=== PATIENT | male | born 1965 | race Caucasian/White ===

== ENCOUNTER 2021-04-01 10:23 | Day surgery (SDC) | payer OTHER, SELFPAY ==
--- NOTE | 2021-04-01 | PATH_ITS ---
[facility] Accession Number: [id number] . 01 Material submitted: . PART A: stomach - ANTRUM PART B: stomach - GASTRIC POLYP PART C: esophagus - MID ESOPHAGUS . 02 Diagnosis: A. Stomach, Antrum, Biopsy: Antral and body-type mucosa with mild chronic gastritis and focal active inflammation. No evidence of Helicobacter on H/E stain. Negative for intestinal metaplasia. Negative for dysplasia and malignancy. . B. Stomach, Polyp, Biopsy: Fundic gland polyp. No evidence of Helicobacter organisms on H/E stain. Negative for intestinal metaplasia. Negative for dysplasia and malignancy. . C. Mid Esophagus, Biopsy: Squamous epithelium with no diagnostic abnormality. Intraepithelial eosinophils are not increased. Negative for dysplasia and malignancy. [facility] 04/03/2021 1341 Local . 02 Comment: A. An immunohistochemical stain will be performed to evaluate for Helicobacter organisms, and the results will be reported as an addendum. . 02 Electronically signed: . Veronique Caldwell MD, Pathologist NPI- [id number] . 01 Gross description: . Part A: ANTRUM: Received in formalin is 1 fragment(s) of lay[place], soft tissue measuring 0.5 x 0.2 x 0.2 cm submitted entirely in 1 cassette(s) Part B: GASTRIC POLYP: Received in formalin are 2 fragment(s) of lay[place], soft tissue measuring 0.2 x 0.2 x 0.2 cm to 0.2 x 0.2 x 0.2 cm submitted entirely in 1 cassette(s) Part C: MID ESOPHAGUS: Received in formalin are 3 fragment(s) of lay[place], soft tissue measuring 0.3 x 0.2 x 0.2 cm to 0.2 x 0.2 x 0.1 cm submitted entirely in 1 cassette(s) /RICARDO 04/02/2021 0426 Local . 02 Pathologist provided ICD-10: R10.13 . 02 CPT . 642574, 704839, 848006, [id number] Performed at: 01 [facility] [address] [id number] MD Xiang Robles MD Phone: [phone] Performed at: 02 [place] [id number] [place] [id number] MD Veronique Caldwell MD Phone: [phone]
[2021-04-01 11:22] LABS: COVID19 -Nasal RAPID Negative (Negative)
[2021-04-01] MEDS: LACTATED RINGERS 1,000 ML 84 ML IV (12:19)
[2021-04-01 12:20] VITALS: BP 134/90; PULSE 45; RESP 16; TEMP 36.4; O2SAT 98; BMI 25.0
--- NOTE | 2021-04-01 13:13 | PM.HP.1 ---
History of Present Illness History of Present Illness Date Patient Seen: 04/01/21 Time Patient Seen: 13:14 Chief complaint: [facility] [place] Narrative: I reviewed Dr Reagan's note. No changes. Sporadic regurgitation. He additionally notes that ove the last 5-10 yrs he's had an intermittent fleeting left sided chest pain. Patient History Medical History (Updated 04/01/21 @ 13:16 by Pedro Parikh MD) Anxiety Deviated nasal septum Erectile dysfunction Migraines Schizophrenia Surgical History (Updated 04/01/21 @ 13:16 by Pedro Parikh MD) Hx of appendectomy Family & Social History Social History: household members spouse Tobacco & Substance use: Smoking Status Never smoker alcohol intake never Substance Use Type does not use Meds Home Medications and Allergies Home Medications Medication Instructions Recorded Confirmed Type aripiprazole 15 mg PO DAILY 04/01/21 04/01/21 History lansoprazole 30 mg PO DAILY 04/01/21 04/01/21 History nadolol 20 mg PO DAILY 04/01/21 04/01/21 History Allergies Allergy/AdvReac Type Severity Reaction Status Date / Time naproxen Allergy Severe Hives Verified 04/01/21 12:14 [From Aleve Sinus and Headache] penicillin V Allergy Severe Rash Verified 04/01/21 12:14 pseudoephedrine Allergy Severe Hives Verified 04/01/21 12:14 [From Aleve Sinus and Headache] Review of Systems Review of Systems ROS: Yes All systems reviewed with the patient and are negative except as otherwise documented Exam Vital Signs (past 8 hours): - 04/01/21 12:20 Temperature 97.5 F L Pulse Rate 45 L Respiratory Rate 16 Blood Pressure 134/90 Pulse Oximetry 98 Oxygen Delivery Method Room Air Const General: cooperative and comfortable Orientation: alert [facility] Head: normocephalic Ears: external ears normal Nose: external nose normal Face and sinus: normal facial exam Mouth: oral mucosae normal Eyes General: appearance normal, both eyes and all related structures Neck Neck: normal visual inspection Chest Chest: normal inspection of the chest Resp Effort & Inspection: normal respiratory effort Auscultation: clear to auscultation bilaterally Cardio Rate: regular rate Rhythm: regular rhythm Heart Sounds: no murmurs GI Inspection: normal to inspection Palpation: soft and No tender Auscultation: normal bowel sounds Skin General: no rashes or lesions noted and No jaundice Neuro General: patient alert and moves all extremities Cognition: normal cognition Speech: speech normal Extrem General: no pedal edema Psych Appearance: grossly normal Objective Labs Labs: Laboratory Results - last 24 hr 04/01/21 10:45 SARS-CoV-2 (PCR) Negative Assessment & Plan Assessment & Plan narrative: regurgitation, epigastric pain, headaches with nausea. EGD planned for today.
--- NOTE | 2021-04-01 13:18 | PM.PREOP ---
Pre-operative Note COVID-19 COVID-19 status: Negative Result date/Date tested (Pos, Neg/Pending): 04/01/21 Interval Note History & Physical reviewed/Exam performed by Physician: Yes Changes to H&P: No ASA Class (for procedural sedation): II
--- NOTE | 2021-04-01 13:43 | PM.OP.ENDO ---
Operative Date/Time/Diagnoses Date of procedure: 04/01/21 Time of procedure: 13:43 Pre-op diagnosis: regurgitation, epigastric pain Post-op diagnosis: same Procedure & Clinicians Study performed: egd with biopsies Same procedure as scheduled: Yes Indications: regurgitation and epigastric pain Surgeon: Pedro Parikh Procedure Notes SCOAP/Timeout: Done Procedure in detail: 1. Esophagus: The GE junction was at approximately 49 cm from the incisors. The squamocolumnar junction was clean crisp and without any obvious inflammation. There is no suggestion of Gu's. If she no stricturing no mass lesions. In the midesophagus there was a mild corrugated appearance. I therefore took biopsies from mid esophagus to exclude eosinophilic infiltration. Very subtle sliding hiatal hernia appreciated. 2. Stomach: There were a couple of diminutive polyps in the body and a couple of these were sampled. There was minimal gastropathy appreciated in the region of the antrum. I therefore took couple of bites for exclusion of Helicobacter pylori infection. 3. Duodenum this appeared visually normal from the bulb through to the 2nd portion. Scope withdrawal time: n/a Sedation minutes: 14 Impression: 1. Subtle sliding hiatal hernia 2. Mild gastropathy 3. Diminutive gastric polyps 4. Corrugated appearing esophagus Post-procedure Plan for aftercare: 1. Await histopathology 2. Continue lansoprazole for now. 3. Follow up GI clinic. Disposition: PACU
[2021-04-01 13:47] VITALS: BP 111/69; PULSE 46; RESP 10; TEMP 36.6; O2SAT 95
[2021-04-01 13:52] VITALS: BP 106/73; PULSE 47; RESP 16; O2SAT 97
[2021-04-01 13:57] VITALS: BP 109/70; PULSE 47; RESP 10; O2SAT 96
[2021-04-01 14:07] VITALS: BP 120/82; PULSE 48; RESP 16; TEMP 36.7; O2SAT 96
[2021-04-01 14:15] VITALS: BP 126/86; PULSE 46; RESP 12; TEMP 37.4; O2SAT 97
== END 2021-04-01 14:35 | disposition home or self-care (01) ==
PROVIDERS: PCP Family Medicine; Referring Provider Internal Medicine Gastroenterology; Visit Provider Internal Medicine Gastroenterology
PROC: 0DJ08ZZ Inspection of Upper Intestinal Tract, Via Natural or Artificial Opening Endoscopic (ICD-10-PCS; CPT 43235; principal; 2021-04-01 12:30)
DX: K29.50 Unspecified chronic gastritis without bleeding (principal); R11.2 Nausea with vomiting, unspecified; F41.9 Anxiety disorder, unspecified; R51.9 Headache, unspecified; F20.9 Schizophrenia, unspecified; Z20.822 Contact with and (suspected) exposure to COVID-19; K44.9 Diaphragmatic hernia without obstruction or gangrene; K31.7 Polyp of stomach and duodenum; K31.9 Disease of stomach and duodenum, unspecified
CPT/HCPCS: 43239; 87635; J2704; J3010